=== PATIENT | male | born 1985 | race American Indian/Alaskan Native ===

== ENCOUNTER 2017-12-16 17:32 | Emergency (ER) | payer OTHER ==
[2017-12-16 17:44] VITALS: BP 174/91
--- NOTE | 2017-12-16 18:48 | XRay Report ---
FINAL REPORT EXAM: XR HAND 3+V RT HISTORY: pain/swelling r/t injury TECHNIQUE: Frontal, lateral, oblique views right hand Comparison: None FINDINGS: There is acute angulated and displaced fracture of the distal metadiaphysis of the 5th metacarpal with associated soft tissue swelling. There is the appearance of sequela of previous fracture of the ulna styloid versus accessory ossicle. IMPRESSION: 1. Acute angulated and displaced fracture distal metadiaphysis of the 5th metacarpal with associated soft tissue swelling.
[2017-12-16] MEDS ORDERED: MOTRIN PO ONE (19:26)
--- NOTE | 2017-12-16 19:26 | Emergency Department Report ---
Upper Extremity - [facility] Chief Complaint: Extremity Injury, Upper Stated Complaint: RIGHT HAND PAIN Time Seen by Provider: 12/16/17 19:04 Upper Extremity: Right Hand (swollen and painful after accidentally hit in the stepson's knee . Patient said he was joking around at the time with his stepson but he is having pain and swelling to right hand.) Occurred When: Today Mechanism: Hit with Object Severity: severe Symptoms: Yes Pain with Movement (8/10. Pain is better with rest. Pain is achy and throbbing), Yes Limited Range of Movement (painful range of motion to right hand), Yes Swelling (right hand), No Deformity, No Numbness, No Weakness, No Bruising/Ecchymosis, No Laceration or Abrasion Other History: This is a 32-year-old male here presented to the emergency room report that he was joking around with his stepson and he accidentally injured his right hand when his hand connected to stepson knee. He reports that his pain is 8 out of 10 achy and throbbing to right hand. Denies any radiation of pain. Denies any restriction in movement to his fingers or wrists. No medication taken per patient. Denies any redness or fever or chills. Pain is better with rest and worse with movement ED Review of Systems ROS: Stated complaint: RIGHT HAND PAIN Other details as noted in HPI Constitutional: denies: chills, fever Eyes: denies: eye discharge ENT: denies: throat pain Respiratory: denies: cough, shortness of breath, SOB with exertion, SOB at rest , stridor, wheezing Cardiovascular: denies: chest pain, palpitations Gastrointestinal: denies: abdominal pain, nausea, diarrhea, constipation Genitourinary: denies: urgency, dysuria Musculoskeletal: denies: back pain, joint swelling, arthralgia Skin: denies: rash, lesions Neurological: denies: headache, weakness, paresthesias Psychiatric: denies: anxiety, depression Hematological/Lymphatic: denies: easy bleeding, easy bruising ED Past Medical Hx - Past Medical History Previous Medical History?: No - Surgical History Past Surgical History?: No - Family History Family history: no significant - Social History Smoking Status: Current Every Day Smoker Substance Use Type: Alcohol - Medications Home Medications: Home Medications Medication Instructions Recorded Confirmed Last Taken Type HYDROcodone/ACETAMINOPHEN [[place] 1 each PO Q6H PRN #12 tablet 12/16/17 Unknown Rx 7.5-325 Tablet] Ibuprofen [Motrin] 600 mg PO Q8H PRN #15 tablet 12/16/17 Unknown Rx Upper Extremity Exam - Exam General: Vital signs noted. No distress. Alert and acting appropriately. This is a 32-year-old male well-nourished well-developed in no distress Head and Torso: No HEENT Abnormality, No Neck Tenderness, No Chest/Lungs Abnormality, No Abdominal Tenderness, No Back Tenderness Shoulder Exam: Yes Normal Range of Motion in Shoulder, No Shoulder Tenderness, No Clavicle Tenderness, No Shoulder Deformity, No AC Joint Tenderness Arm Exam: No Arm/Humerus Tenderness, No Arm Deformity Elbow: Yes Normal Range of Motion in Elbow, No Elbow Tenderness, No Elbow Deformity Forearm: No Forearm Tenderness, No Forearm Deformity, No Pain with Pronation, No Pain with Supination Wrist: Yes Normal ROM in Wrist (normal movement), No Wrist Tenderness, No Wrist Deformity, No Snuffbox Tenderness, No Pain with Axial Thumb Compression Hand: Yes Hand Tenderness (tenderness to the fifth metacarpal bone with swelling ), Yes Normal ROM in Digit(s) (pain with range of motion), No Hand Deformity, No Digit Tenderness, No Digit(s) Deformity, No Tendon Dysfunction CMS Exam: Yes Normal Distal Pulses, Yes Normal Capillary Refill, Yes Normal Distal Sensation, No Broken Skin Hand L/R Back: 1 - Pain, swelling and tenderness at metacarbal bone area, right hand. ED Course Vital Signs 12/16/17 17:42 Temperature 98.4 F Pulse Rate 80 Respiratory 18 Rate Blood Pressure 174/91 O2 Sat by Pulse 99 Oximetry - Reevaluation(s) Reevaluation #1: 12/16/17 21:31 Patient given motrin 800 mg po with releif of pain. Right boxer fracture with splint placement. Patient with good color, sensation, temperature and movement fingers of right hand. - Orthopedic Splinting/Casting Injury #1 Side: right Upper Extremity Injury Location: hand Upper Extremity Immobilizer: sling/shoulder immobilize, ulnar gutter Additional Comments: Post-splint and neurovascular check intact. ED Medical Decision Making - Radiology Data Radiology results: report reviewed X-ray 3 view of right hand dictated by radiologist and report reviewed by myself. Please see report below. Patient: ANKIT GARCIA MR#: [id number] : 1985 Acct:[id number] Age/Sex: 32 / M ADM Date: 12/16/17 Loc: ED Attending Dr: Ordering Physician: TRE NARAYAN MD Date of Service: 12/16/17 Procedure(s): XR hand 3+V RT Accession Number(s): [id number] cc: ED MD SYLVAIN Fluoro Time In Minutes: FINAL REPORT EXAM: XR HAND 3+V RT HISTORY: pain/swelling r/t injury TECHNIQUE: Frontal, lateral, oblique views right hand Comparison: None FINDINGS: There is acute angulated and displaced fracture of the distal metadiaphysis of the 5th metacarpal with associated soft tissue swelling. There is the appearance of sequela of previous fracture of the ulna styloid versus accessory ossicle. IMPRESSION: 1. Acute angulated and displaced fracture distal metadiaphysis of the 5th metacarpal with associated soft tissue swelling. Transcribed By: ED Dictated By: WINSTON JIMÉNEZ MD Electronically Authenticated By: WINSTON JIMÉNEZ MD Signed Date/Time: 12/16/171840 DD/ 40 TD/TT: 12/16/171840 - Medical Decision Making This is a 32-year-old male reports that he injured his right hand while joking around with his stepson. He reports pain and swelling. He is here to be evaluated Patient was seen and examined by myself. He has swelling and tenderness to fifth metacarpal bone area of right hand. Patient has no restriction in movement to his right hand and he has 2+ and bounding radial and ulnar pulses to both upper extremity. He has no injury to fingers or to nail bed. And no laceration or abrasion to his hands. Bilateral handgrips are strong and equal in the has no neurovascular compromise. X-ray 3 view of right hand dictated by radiologist and report reviewed by myself. And shows Acute angulated and displaced fracture distal metadiaphysis of the 5th metacarpal with associated soft tissue swelling. I discussed x-ray result with patient and he voiced understanding. I also discussed the importance of him following up with orthopedic doctor for further evaluation and treatment. I told them that he needs to keep the splint on until further direction from orthopedic doctor. He voiced understanding. Assessment/plan Acute distal fifth metacarpal displaced fracture with soft tissue swelling secondary to injury-patient had boxer OCL splint placed to left hand. Patient with good color, movement, sensation and temperature to fingers of left hand after splint placed. He was given Motrin 800 mg by mouth in emergency room for pain which relieved this pain. Arthralgia right hand-better with Motrin Patient educated on medication, fracture, splint care, need to follow-up with orthopedic doctor, checking for compromising circulation with splint on. He voiced understanding. Patient discharged home in stable condition. Vital signs are stable he is afebrile and his pain has diminished since splint is placed and Motrin. Patient discharged home with prescription for [place] and Motrin and he knows to follow up with orthopedic doctor in 2-3 days. - Differential Diagnosis fracture, contusion, sprain, strain, musculoskeletal pain Critical care attestation.: If time is entered above; I have spent that time in minutes in the direct care of this critically ill patient, excluding procedure time. ED Disposition Clinical Impression: Arthralgia of right hand Fracture of metacarpal, closed Qualifiers: Encounter type: initial encounter Metacarpal bone: fifth Metacarpal location: unspecified portion of metacarpal Fracture alignment: displaced Laterality: right Qualified Code(s): S62.306A - Unspecified fracture of fifth metacarpal bone, right hand, initial encounter for closed fracture Disposition: DC-01 TO HOME OR SELFCARE Is pt being admited?: No Does the pt Need Aspirin: No Condition: Stable Instructions: Hand Fracture (ED), Arthralgia (ED), Splint Care (ED), RICE Therapy (ED) Additional Instructions: Please follow up with orthopedic doctor as instructed and to 3 days Please follow discharge instruction on Rice therapy and splint care Take [place] for severe pain and please do not drive or operate heavy machinery while taking this medication as a cause drowsiness Take Motrin 600 mg for mild to moderate pain but please take this medication with food on his stomach is aching cause irritation T is somewhat inclined in Prescriptions: HYDROcodone/ACETAMINOPHEN [[place] 7.5-325 Tablet] 1 each PO Q6H PRN #12 tablet PRN Reason: severe pain Ibuprofen [Motrin] 600 mg PO Q8H PRN #15 tablet PRN Reason: mild to moderate pain Referrals: PRIMARY CARE, [Primary Care Provider] - 2-3 Days MELISSA OCONNOR MD [Staff Physician] - 2-3 Days Forms: Work/School Release Form(ED)
== END 2017-12-16 22:05 | disposition home or self-care (01) ==
LOC: ED 17:32
DX: S62.396A Other fracture of fifth metacarpal bone, right hand, initial encounter for closed fracture (principal); F17.200 Nicotine dependence, unspecified, uncomplicated; W22.8XXA Striking against or struck by other objects, initial encounter; Y93.89 Activity, other specified; Y92.89 Other specified places as the place of occurrence of the external cause; Y99.8 Other external cause status
CPT/HCPCS: 99283

== ENCOUNTER 2018-06-19 09:12 | Emergency (ER) | payer OTHER ==
[2018-06-19 09:18] VITALS: BP 141/74
[2018-06-19] MEDS ORDERED: TESSALON PERLES PO ONE (09:46)
--- NOTE | 2018-06-19 10:20 | XRay Report ---
ROUTINE CHEST, TWO VIEWS: Cough PA and lateral views demonstrate the heart and mediastinal contour to be of normal size and shape. The lungs are clear and fully expanded and the soft tissues and bony structures are normal. IMPRESSION: Normal study.
--- NOTE | 2018-06-19 10:21 | Emergency Department Report ---
- General Chief Complaint: Sore Throat Stated Complaint: COUGH/SORETHROAT Time Seen by Provider: 06/19/18 09:42 Source: patient Mode of arrival: Ambulatory Limitations: No Limitations - History of Present Illness Initial Comments: This is a 33-year-old male nontoxic, well nourished in appearance, no acute signs of distress presents to the ED with c/o of productive cough, sore throat, rhinorrhea, nasal congestion x1 week. Patient describes productive cough as yellow mucus production. Patient denies any sick contact. Patient denies any recent travels, long car, recent hospital stays. Patient denies any calf pain or calf tenderness. Patient denies any chest pain, short of breath, fever, chills, nausea, vomiting, hemoptysis, numbness, tingling, headache or stiff neck. Patient denies any allergies to significant past medical history. MD Complaint: cough, sore throat, rhinorrhea, nasal congestion -: week(s) (1) Severity: mild Severity scale (0 -10): 8 Quality: aching Consistency: constant Improves With: nothing Worsens With: nothing Associated Symptoms: rhinorrhea, nasal congestion, sore throat, cough. denies: fever, chills, myalgias, diaphoresis, headache, stiff neck, chest pain, shortness of breath, abdominal pain, nausea, vomiting, diarrhea, dysuria, rash, confusion, right sweats, weight loss, epistaxis, hoarseness, ear pain Treatments Prior to Arrival: none - Related Data Previous Rx's Medication Instructions Recorded Last Taken Type HYDROcodone/ACETAMINOPHEN [[place] 1 each PO Q6H PRN #12 tablet 12/16/17 Unknown Rx 7.5-325 Tablet] Ibuprofen [Motrin] 600 mg PO Q8H PRN #15 tablet 12/16/17 Unknown Rx Amoxicillin [Amoxicillin TAB] 875 mg PO BID #20 tablet 06/19/18 Unknown Rx Benzonatate [Tessalon Perle] 100 mg PO Q8H PRN #20 capsule 06/19/18 Unknown Rx Ibuprofen [Motrin] 600 mg PO Q8H PRN #20 tablet 06/19/18 Unknown Rx Nystas/Diphen/Xyl Visc/Mylanta 15 ml MM Q6H PRN 5 Days ml 06/19/18 Unknown Rx [Magic Mouthwash] Allergies Allergy/AdvReac Type Severity Reaction Status Date / Time No Known Allergies Allergy Verified 06/19/18 09:16 ED Review of Systems ROS: Stated complaint: COUGH/SORETHROAT Other details as noted in HPI Constitutional: denies: chills, fever Eyes: denies: eye pain, eye discharge, vision change ENT: throat pain, congestion. denies: ear pain Respiratory: cough. denies: shortness of breath, wheezing Cardiovascular: denies: chest pain, palpitations Endocrine: no symptoms reported Gastrointestinal: denies: abdominal pain, nausea, diarrhea Genitourinary: denies: urgency, dysuria Musculoskeletal: denies: back pain, joint swelling, arthralgia Skin: denies: rash, lesions Neurological: denies: headache, weakness, paresthesias Psychiatric: denies: anxiety, depression Hematological/Lymphatic: denies: easy bleeding, easy bruising ED Past Medical Hx - Past Medical History Previous Medical History?: No - Surgical History Past Surgical History?: No - Social History Smoking Status: Current Every Day Smoker Substance Use Type: None - Medications Home Medications: Home Medications Medication Instructions Recorded Confirmed Last Taken Type HYDROcodone/ACETAMINOPHEN [[place] 1 each PO Q6H PRN #12 tablet 12/16/17 Unknown Rx 7.5-325 Tablet] Ibuprofen [Motrin] 600 mg PO Q8H PRN #15 tablet 12/16/17 Unknown Rx Amoxicillin [Amoxicillin TAB] 875 mg PO BID #20 tablet 06/19/18 Unknown Rx Benzonatate [Tessalon Perle] 100 mg PO Q8H PRN #20 capsule 06/19/18 Unknown Rx Ibuprofen [Motrin] 600 mg PO Q8H PRN #20 tablet 06/19/18 Unknown Rx Nystas/Diphen/Xyl Visc/Mylanta 15 ml MM Q6H PRN 5 Days ml 06/19/18 Unknown Rx [Magic Mouthwash] ED Physical Exam - General Limitations: No Limitations General appearance: alert, in no apparent distress - Head Head exam: Present: atraumatic, normocephalic - Eye Eye exam: Present: normal appearance - Expanded ENT Exam Expanded Ear exam: Present: normal external inspection Mouth exam: Present: normal external inspection. Absent: drooling, trismus, muffled voice Teeth exam: Present: normal inspection Throat exam: Positive: tonsillar erythema, other (uvula midline). Negative: tonsillomegaly, tonsillar exudate, R peritonsillar mass, L peritonsillar mass - Neck Neck exam: Present: normal inspection, full ROM. Absent: tenderness, meningismus, lymphadenopathy - Respiratory Respiratory exam: Present: normal lung sounds bilaterally. Absent: respiratory distress, wheezes, rales, rhonchi, stridor, chest wall tenderness, accessory muscle use, decreased breath sounds, prolonged expiratory - Cardiovascular Cardiovascular Exam: Present: regular rate, normal rhythm, normal heart sounds. Absent: bradycardia, tachycardia, irregular rhythm, systolic murmur, diastolic murmur, rubs, gallop - Extremities Exam Extremities exam: Present: normal inspection, full ROM - Back Exam Back exam: Present: normal inspection, full ROM - Neurological Exam Neurological exam: Present: alert, oriented X3 - Psychiatric Psychiatric exam: Present: normal affect, normal mood - Skin Skin exam: Present: warm, dry, intact, normal color. Absent: rash ED Course Vital Signs 06/19/18 09:16 Temperature 98.5 F Pulse Rate 84 Respiratory 18 Rate Blood Pressure 141/74 O2 Sat by Pulse 99 Oximetry - Reevaluation(s) Reevaluation #1: 06/19/18 10:20 Patient is speaking in full sentences with no signs of distress noted. ED Medical Decision Making - Medical Decision Making This is a 33-year-old male that presents with bronchitis and sinusitis. Patient is stable and was examined by me. Chest x-ray has been obtained and dictated by radiologist with normal exam. Patient is notified of x-ray results with no questions noted. Patient discharged with amoxicillin. Patient was instructed to increase hydration, rest and take Motrin for fever episodes. Patient received tesslone perrls in the ED. Vitals stable. Patient is nonfebrile and normal heart rate. Patient was instructed Follow-up with a primary care doctor in 3-5 days or if symptoms worsen and continue return to emergency room as soon as possible. At time time of discharge, the patient does not seem toxic or ill in appearance. No acute signs of distress noted. Patient agrees to discharge treatment plan of care. No further questions noted by the patient. Critical care attestation.: If time is entered above; I have spent that time in minutes in the direct care of this critically ill patient, excluding procedure time. ED Disposition Clinical Impression: Bronchitis Pharyngitis Qualifiers: Pharyngitis/tonsillitis etiology: unspecified etiology Qualified Code(s): J02.9 - Acute pharyngitis, unspecified Disposition: DC- TO HOME OR SELFCARE Is pt being admited?: No Does the pt Need Aspirin: No Condition: Stable Instructions: Acute Bronchitis (ED), Pharyngitis (ED) Additional Instructions: Follow-up with a primary care doctor in 3-5 days or if symptoms worsen and continue return to emergency room as soon as possible. Prescriptions: Amoxicillin [Amoxicillin TAB] 875 mg PO BID #20 tablet Benzonatate [Tessalon Perle] 100 mg PO Q8H PRN #20 capsule PRN Reason: Cough Ibuprofen [Motrin] 600 mg PO Q8H PRN #20 tablet PRN Reason: Pain Nystas/Diphen/Xyl Visc/Mylanta [Magic Mouthwash] 15 ml MM Q6H PRN 5 Days ml PRN Reason: Sore Throat Referrals: PRIMARY CAREMD [Referring] - 3-5 Days FARIHA ADDISON MD [Staff Physician] - 3-5 Days [facility] [Outside] - 3-5 Days [facility] [Outside] - 3-5 Days Forms: Work/School Release Form(ED)
== END 2018-06-19 10:38 | disposition home or self-care (01) ==
LOC: ED 09:12
DX: J40 Bronchitis, not specified as acute or chronic (principal); J02.9 Acute pharyngitis, unspecified; F17.200 Nicotine dependence, unspecified, uncomplicated
CPT/HCPCS: 71046; 99283

== ENCOUNTER 2018-07-06 03:02 | Emergency (ER) | payer OTHER | END 2018-07-06 03:30 | disposition left against medical advice (07) | LOC: ED 03:02 ==

== ENCOUNTER 2018-11-19 09:52 | Emergency (ER) | payer OTHER ==
--- NOTE | 2018-11-19 11:09 | Emergency Department Report ---
ED Back Pain/Injury HPI - General Chief Complaint: Back Pain/Injury Stated Complaint: BACK PAIN Time Seen by Provider: 11/19/18 10:24 Source: patient Limitations: No Limitations - History of Present Illness Initial Comments: Patient is a 33-year-old male who presents to the emergency room with complaints of left-sided back pain that began yesterday. He denies any fall, injury, bowel or bladder incontinence, or numbness or weakness. He does not report any urinary symptoms, fever, abdominal pain, nausea or vomiting. 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 He denies any past medical history, allergies medications or daily medications. - Related Data Previous Rx's Medication Instructions Recorded Last Taken Type HYDROcodone/ACETAMINOPHEN [[place] 1 each PO Q6H PRN #12 tablet 12/16/17 Unknown Rx 7.5-325 Tablet] Ibuprofen [Motrin] 600 mg PO Q8H PRN #15 tablet 12/16/17 Unknown Rx Amoxicillin [Amoxicillin TAB] 875 mg PO BID #20 tablet 06/19/18 Unknown Rx Benzonatate [Tessalon Perle] 100 mg PO Q8H PRN #20 capsule 06/19/18 Unknown Rx Ibuprofen [Motrin] 600 mg PO Q8H PRN #20 tablet 06/19/18 Unknown Rx Nystas/Diphen/Xyl Visc/Mylanta 15 ml MM Q6H PRN 5 Days ml 06/19/18 Unknown Rx [Magic Mouthwash] Cyclobenzaprine [Flexeril] 10 mg PO QHS PRN #10 tablet 11/19/18 Unknown Rx Ibuprofen [Motrin 800 MG tab] 800 mg PO Q8HR PRN #14 tablet 11/19/18 Unknown Rx Allergies Allergy/AdvReac Type Severity Reaction Status Date / Time No Known Allergies Allergy Verified 06/19/18 09:16 ED Review of Systems ROS: Stated complaint: BACK PAIN Other details as noted in HPI Comment: All other systems reviewed and negative ED Past Medical Hx - Past Medical History Previous Medical History?: No Hx Asthma: Yes - Surgical History Past Surgical History?: No - Social History Smoking Status: Current Every Day Smoker Substance Use Type: Alcohol - Medications Home Medications: Home Medications Medication Instructions Recorded Confirmed Last Taken Type HYDROcodone/ACETAMINOPHEN [[place] 1 each PO Q6H PRN #12 tablet 07/29/18 Unknown Rx 7.5-325 Tablet] Ibuprofen [Motrin] 600 mg PO Q8H PRN #15 tablet 12/16/17 Unknown Rx Amoxicillin [Amoxicillin TAB] 875 mg PO BID #20 tablet 06/19/18 Unknown Rx Benzonatate [Tessalon Perle] 100 mg PO Q8H PRN #20 capsule 06/19/18 Unknown Rx Ibuprofen [Motrin] 600 mg PO Q8H PRN #20 tablet 06/19/18 Unknown Rx Nystas/Diphen/Xyl Visc/Mylanta 15 ml MM Q6H PRN 5 Days ml 06/19/18 Unknown Rx [Magic Mouthwash] Cyclobenzaprine [Flexeril] 10 mg PO QHS PRN #10 tablet 11/19/18 Unknown Rx Ibuprofen [Motrin 800 MG tab] 800 mg PO Q8HR PRN #14 tablet 11/19/18 Unknown Rx ED Physical Exam - General Limitations: No Limitations General appearance: alert, in no apparent distress - Head Head exam: Present: atraumatic, normocephalic - Eye Eye exam: Present: normal appearance, PERRL - ENT ENT exam: Present: mucous membranes moist - Neck Neck exam: Present: normal inspection, full ROM. Absent: tenderness - Respiratory Respiratory exam: Present: normal lung sounds bilaterally. Absent: respiratory distress, wheezes, rales, rhonchi, stridor, chest wall tenderness, accessory muscle use, decreased breath sounds, prolonged expiratory - Cardiovascular Cardiovascular Exam: Present: regular rate, normal rhythm, normal heart sounds. Absent: systolic murmur, diastolic murmur, rubs, gallop - Back Exam Back exam: Present: normal inspection, full ROM, paraspinal tenderness (left T- spine paraspinal muscular TTP, no midline C-spine, T-spine, or L-spine tenderness to palpation, no step offs, no deformities ). 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 Absent: motor sensory deficit - Psychiatric Psychiatric exam: Present: normal affect, normal mood - Skin Skin exam: Present: warm, dry, intact ED Course Vital Signs 11/19/18 11/19/18 10:13 11:23 Temperature 98.2 F Pulse Rate 78 74 Respiratory 16 16 Rate Blood Pressure 161/76 Blood Pressure 154/75 [Right] O2 Sat by Pulse 99 100 Oximetry ED Medical Decision Making - Medical Decision Making Patient is a 33-year-old male who presents to the emergency room with complaints of left-sided back pain that began yesterday. He denies any fall, injury, bowel or bladder incontinence, or numbness or weakness. He does not report any urinary symptoms, fever, abdominal pain, nausea or vomiting. 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 He denies any past medical history, allergies medications or daily medications. on exam: left T-spine paraspinal muscular TTP, no midline C-spine, T-spine, or L-spine tenderness to palpation, no step offs, no deformities, no focal neuro deficit. pt given anti-inflammatory and muscle relaxer for low back strain. advised to please take medication as prescribed. Do not drive or operate machinery while taking muscle relaxer. Use ice, rest, heat, epsom salt bath. Follow up with a primary care doctor in the next 2-3 days. Return to the emergency room for any new or worsening symptoms. - Differential Diagnosis DDD, DJD, muscle strain Critical care attestation.: If time is entered above; I have spent that time in minutes in the direct care of this critically ill patient, excluding procedure time. ED Disposition Clinical Impression: Back pain Qualifiers: Back pain location: thoracic back pain Chronicity: acute Back pain laterality: left Qualified Code(s): M54.6 - Pain in thoracic spine Disposition: DC-01 TO HOME OR SELFCARE Is pt being admited?: No Does the pt Need Aspirin: No Condition: Stable Instructions: Muscle Strain (ED) Additional Instructions: Please take medication as prescribed. Do not drive or operate machinery while taking muscle relaxer. Use ice, rest, heat, epsom salt bath. Follow up with a primary care doctor in the next 2-3 days. Return to the emergency room for any new or worsening symptoms. Prescriptions: Cyclobenzaprine [Flexeril] 10 mg PO QHS PRN #10 tablet PRN Reason: Muscle Spasm Ibuprofen [Motrin 800 MG tab] 800 mg PO Q8HR PRN #14 tablet PRN Reason: Pain, Moderate (4-6) Referrals: [facility] [Provider Group] - 2-[address] [facility] [Outside] - 2-3 Days [facility] [Outside] - 2-3 Days Time of Disposition: 11:06 Print Language: HEBREW
[2018-11-19 11:24] VITALS: BP 154/75
== END 2018-11-19 11:23 | disposition home or self-care (01) ==
LOC: ED 09:52
DX: M54.9 Dorsalgia, unspecified (principal); F17.200 Nicotine dependence, unspecified, uncomplicated; Z79.1 Long term (current) use of non-steroidal anti-inflammatories (NSAID); Z79.899 Other long term (current) drug therapy
CPT/HCPCS: 99282

== ENCOUNTER 2018-12-01 20:29 | Emergency (ER) | payer OTHER | END 2018-12-01 21:05 | disposition left against medical advice (07) | LOC: ED 20:29 | DX: M25.531 Pain in right wrist (principal); Z53.21 Procedure and treatment not carried out due to patient leaving prior to being seen by health care provider ==

== ENCOUNTER 2018-12-02 09:10 | Emergency (ER) | payer OTHER ==
[2018-12-02 09:19] VITALS: BP 126/68
--- NOTE | 2018-12-02 09:33 | Emergency Department Report ---
ED Back Pain/Injury HPI - General Chief Complaint: Extremity Injury, Upper Stated Complaint: R WRIST PAIN/SWOLLEN Source: patient Limitations: No Limitations - History of Present Illness Initial Comments: Patient is a pleasant 33-year-old male who comes to the ER complaining of right wrist pain and swelling. He states that he hurt it at work last week. He has mild swelling on exam. He is neurovascularly intact. - Related Data Previous Rx's Medication Instructions Recorded Last Taken Type HYDROcodone/ACETAMINOPHEN [[place] 1 each PO Q6H PRN #12 tablet 12/16/17 Unknown Rx 7.5-325 Tablet] Ibuprofen [Motrin] 600 mg PO Q8H PRN #15 tablet 12/16/17 Unknown Rx Amoxicillin [Amoxicillin TAB] 875 mg PO BID #20 tablet 06/19/18 Unknown Rx Benzonatate [Tessalon Perle] 100 mg PO Q8H PRN #20 capsule 06/19/18 Unknown Rx Ibuprofen [Motrin] 600 mg PO Q8H PRN #20 tablet 06/19/18 Unknown Rx Nystas/Diphen/Xyl Visc/Mylanta 15 ml MM Q6H PRN 5 Days ml 06/19/18 Unknown Rx [Magic Mouthwash] Cyclobenzaprine [Flexeril] 10 mg PO QHS PRN #10 tablet 11/19/18 Unknown Rx Ibuprofen [Motrin 800 MG tab] 800 mg PO Q8HR PRN #14 tablet 11/19/18 Unknown Rx Allergies Allergy/AdvReac Type Severity Reaction Status Date / Time No Known Allergies Allergy Verified 06/19/18 09:16 ED Review of Systems ROS: Stated complaint: R WRIST PAIN/SWOLLEN Other details as noted in HPI Comment: All other systems reviewed and negative ED Past Medical Hx - Past Medical History Medical history: no medical history Family history: no significant family history ED Back Pain Physical Exam - Exam General: Vital signs noted. No distress. Alert and acting appropriately. WDWN patient in NAD VS per RN flow sheet Alert and oriented to person, place and time. S1-S2. No S3 or S4. No systolic or diastolic murmur. No JVD. No pitting edema. Lungs clear to auscultation bilaterally anteriorly and posteriorly. Abdomen soft nontender bowel sounds x4 Moves all extremities well x r wrist limited by pain rapid cap refill. radial and ulnar pulses intact. no snuff box tenderness. full rom distal fingers. forearm WNL. Mood and affect appropriate. Back/Abdomen: No Abdominal Tenderness, No Perithoracic Tenderness, No Perilumbar Tenderness, No Sacroiliac Tenderness, No Flank Tenderness, No Straight Leg Raise Pain ED Course Vital Signs 12/02/18 09:16 Temperature 98 F Pulse Rate 91 H Respiratory 19 Rate Blood Pressure 126/68 [Left] O2 Sat by Pulse 100 Oximetry Ed Back Pain Tests - Tests Tests: Abnormal X Rays ED Medical Decision Making - Radiology Data Radiology results: report reviewed, image reviewed - Medical Decision Making fx on xray noted splint to arm neurovasc intact dc home with dc plan of are including ortho follow up Vital Signs 12/02/18 09:16 Temperature 98 F Pulse Rate 91 H Respiratory 19 Rate Blood Pressure 126/68 [Left] O2 Sat by Pulse 100 Oximetry Critical care attestation.: If time is entered above; I have spent that time in minutes in the direct care of this critically ill patient, excluding procedure time. ED Disposition Clinical Impression: Fracture of ulnar styloid Disposition: DC-01 TO HOME OR SELFCARE Is pt being admited?: No Does the pt Need Aspirin: No Condition: Stable Instructions: Wrist Fracture in Adults (ED) Additional Instructions: DIET TOLERATED MEDS ORDERED TODAY IN ER FOLLOW INSTRUCTIONS ON THE BOTTLE FOLLOW UP PCP WITHIN 48 HOURS TO ENSURE YOU ARE GETTING BETTER ACTIVITY TOLERATED MOTRIN OR TYLENOL FOR PAIN OR FEVER RETURN TO THE ER FOR WORSENING SYMPTOMS NOT RELIEVED BY YOUR MEDICATIONS. follow up with Dr Perez next week- referral below splint to prevent further injury ice/rest/elevate no work with right hand until cleared by ortho Referrals: MELISSA PEREZ MD [Staff Physician] - 3-5 Days Time of Disposition: 10:04
--- NOTE | 2018-12-02 09:57 | XRay Report ---
RIGHT WRIST, 4 VIEWS INDICATION: Right wrist pain for 5 days. COMPARISON: None. IMPRESSION: No acute osseous or soft tissue abnormality. 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 No evidence for degenerative joint disease or ligamentous injury. Signer Name: Malik Barber Jr, MD Signed: 12/02/2018 9:52 AM Workstation Name: [id number]
[2018-12-02] MEDS ORDERED: IBUPROFEN PO ONE (09:58)
== END 2018-12-02 10:42 | disposition home or self-care (01) ==
LOC: ED 09:10
DX: S52.611A Displaced fracture of right ulna styloid process, initial encounter for closed fracture (principal); Z79.4 Long term (current) use of insulin; Z79.899 Other long term (current) drug therapy; W22.8XXA Striking against or struck by other objects, initial encounter; Y93.89 Activity, other specified; Y92.69 Other specified industrial and construction area as the place of occurrence of the external cause; Y99.8 Other external cause status
CPT/HCPCS: 99283

== ENCOUNTER 2019-02-02 09:08 | Emergency (ER) | payer OTHER ==
[2019-02-02 09:16] VITALS: BP 153/71
--- NOTE | 2019-02-02 10:25 | Emergency Department Report ---
Upper Extremity - HPI Chief Complaint: Extremity Injury, Upper Stated Complaint: R WRIST PAIN Time Seen by Provider: 02/02/19 09:58 Upper Extremity: Right Wrist, Right Hand Occurred When: >5 Days Mechanism: Twist Severity: mild Symptoms: Yes Pain with Movement, Yes Swelling, No Deformity, No Limited Range of Movement, No Numbness, No Weakness, No Bruising/Ecchymosis, No Laceration or Abrasion Other History: Mr. Phelps is a 33-year-old male who presents with 2 months of right wrist pain. He twisted his wrist while at work. He was diagnosed with a wrist factor. Pain is still persistent. Has swelling. He wore the splint for approximatelyly 2 weeks. Mild pain. Worse with movement. Pain is located at the ulnar aspect of the right wrist radiating to the ulnar region of the right hand. Mr. Phelps is right-handed. 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 According to electronic medical record: Wrist radiographs revealed chronic unified styloid fracture of the ulna. 2018: Mr. Phelps was treated for fifth metacarpal fracture, in 2018 the previous fracture of the ulnar styloid was seen ED Review of Systems ROS: Stated complaint: R WRIST PAIN Other details as noted in HPI Constitutional: denies: fever, malaise Musculoskeletal: joint swelling, arthralgia Skin: denies: rash, lesions Neurological: denies: numbness, paresthesias ED Past Medical Hx - Past Medical History Previous Medical History?: Yes Hx Asthma: Yes Additional medical history: Right wrist fx. pain - Surgical History Past Surgical History?: No - Social History Smoking Status: Current Every Day Smoker Substance Use Type: Alcohol, Marijuana - Medications Home Medications: Home Medications Medication Instructions Recorded Confirmed Last Taken Type HYDROcodone/ACETAMINOPHEN [[place] 1 each PO Q6H PRN #12 tablet 12/16/17 Unknown Rx 7.5-325 Tablet] Ibuprofen [Motrin] 600 mg PO Q8H PRN #15 tablet 12/16/17 Unknown Rx Amoxicillin [Amoxicillin TAB] 875 mg PO BID #20 tablet 06/19/18 Unknown Rx Benzonatate [Tessalon Perle] 100 mg PO Q8H PRN #20 capsule 06/19/18 Unknown Rx Ibuprofen [Motrin] 600 mg PO Q8H PRN #20 tablet 06/19/18 Unknown Rx Nystas/Diphen/Xyl Visc/Mylanta 15 ml MM Q6H PRN 5 Days ml 06/19/18 Unknown Rx [Magic Mouthwash] Cyclobenzaprine [Flexeril] 10 mg PO QHS PRN #10 tablet 11/19/18 Unknown Rx Ibuprofen [Motrin 800 MG tab] 800 mg PO Q8HR PRN #14 tablet 11/19/18 Unknown Rx Ibuprofen [Motrin 800 MG tab] 800 mg PO TID 5 Days #15 tablet 02/02/19 Unknown Rx Upper Extremity Exam - Exam General: Vital signs noted. No distress. Alert and acting appropriately. Elbow: Yes Normal Range of Motion in Elbow, No Elbow Tenderness, No Elbow Deformity Forearm: No Forearm Tenderness, No Forearm Deformity, No Pain with Pronation, No Pain with Supination Wrist: Yes Normal ROM in Wrist, No Wrist Tenderness, No Wrist Deformity, No Snuffbox Tenderness, No Pain with Axial Thumb Compression Hand: Yes Normal ROM in Digit(s), No Hand Tenderness, No Hand Deformity, No Digit Tenderness, No Digit(s) Deformity, No Tendon Dysfunction CMS Exam: Yes Normal Distal Pulses, Yes Normal Capillary Refill, Yes Normal Di stal Sensation, No Broken Skin ED Course Vital Signs 02/02/19 09:14 Temperature 98.1 F Pulse Rate 76 Respiratory 18 Rate Blood Pressure 153/71 O2 Sat by Pulse 99 Oximetry ED Medical Decision Making - Radiology Data Radiology results: report reviewed Right wrist radiographs: No acute findings, no changes from previous - Medical Decision Making Right wrist and hand pain: Mr. Phelps has had 2 injuries in this right upper extremity within the past year including metacarpal fracture in 2018, and twisting injury 2 months ago. I strongly recommended evaluation by orthopedic surgeon in anticipation of arthritislike process as well as possible ligamentous injury. Prescribed ibuprofen. Critical care attestation.: If time is entered above; I have spent that time in minutes in the direct care of this critically ill patient, excluding procedure time. ED Disposition Clinical Impression: Right wrist pain, Right hand pain, History of fracture Disposition: TO HOME OR SELFCARE Is pt being admited?: No Does the pt Need Aspirin: No Condition: Stable Additional Instructions: Please see the orthopedic surgeon as discussed. Prescriptions: Ibuprofen [Motrin 800 MG tab] 800 mg PO TID 5 Days #15 tablet Referrals: MELISSA OCONNOR MD [Staff Physician] - 3-5 Days Forms: Work/School Release Form(ED)
--- NOTE | 2019-02-02 10:46 | XRay Report ---
RIGHT WRIST 3 VIEWS INDICATION: wrist pain hx of fracture. COMPARISON: 12/02/2018. FINDINGS: There is no significant change since the prior exam. Healed little finger metacarpal fracture is agai n noted. Ununited apophysis versus ununited ulnar styloid fracture again noted. Carpal alignment is n ormal. IMPRESSION: 1. No significant change. Signer Name: Manny Taveras MD Signed: 02/02/2019 10:42 AM Workstation Name: [email or web address]
== END 2019-02-02 11:03 | disposition home or self-care (01) ==
LOC: ED 09:08
DX: M25.531 Pain in right wrist (principal); J45.909 Unspecified asthma, uncomplicated; F17.200 Nicotine dependence, unspecified, uncomplicated; F12.90 Cannabis use, unspecified, uncomplicated; Z79.899 Other long term (current) drug therapy
CPT/HCPCS: 99283

== ENCOUNTER 2019-07-08 07:36 | Emergency (ER) | payer OTHER ==
[2019-07-08 07:46] VITALS: BP 150/91
[2019-07-08 08:55] LABS: Mucus,Urine FEW /HPF
[2019-07-08 09:36] LABS: Bilirubin,Urine Negative (Negative); Blood,Urine Negative (Negative); Color,Urine Straw (Yellow)
[2019-07-08 09:37] LABS: Urobilinogen,Urine < 2.0 mg/dL (<2.0)
--- NOTE | 2019-07-08 10:10 | Emergency Department Report ---
Chief Complaint: Urogenital-Male Stated Complaint: ITCHING/DISCHARGE Time Seen by Provider: 07/08/19 09:32 - HPI History of Present Illness: 34-year-old male with no significant past medical history presents to the ER today complaining of white penile discharge and penile itching. He denies any apparent rash, he denies any dysuria, denies any hematuria, denies any testicular pain or swelling. He denies any known STD exposure. Denies any new sexual contact. - ROS Review of Systems: +penile discharge and penile itching. negative abd pain, negative n/v/d, negative dysuria or hematuria, negative testicular pain or swelling; every other system reviewed and negative. - Exam Vital Signs: Vital Signs 07/08/19 07:45 Temperature 98.3 F Pulse Rate 88 Respiratory 16 Rate Blood Pressure 150/91 O2 Sat by Pulse 99 Oximetry Physical Exam: Patient is well appearing, not toxic, no acute distress Cardiac-- RRR, no murmurs rubs or gallops Respiratory -- CTA Abd -- Soft non tender Genital -- exam deferred neuro -- alert, oriented x 3, neurologically intact Psych - normal mood, normal affect, no SI, no HI MSE screening note: Focused history and physical exam performed. Patient symptoms likely related to STI. He does not have a medical emergency at this time. Recommend that patient f/u with local PCP for STI testing and treatment. Patient stable at time of d/c. ED Disposition for MSE Clinical Impression: Penile discharge Disposition: Z MED SCREENING EXAM-LEFT Is pt being admited?: No Does the pt Need Aspirin: No Condition: Stable Additional Instructions: Follow up with PCP for STD testing and treatment. Referrals: TARUN PENG MD [Staff Physician] - 3-5 Days Time of Disposition: 09:56
== END 2019-07-08 10:20 | disposition left against medical advice (07) ==
LOC: ED 07:36
DX: R36.9 Urethral discharge, unspecified (principal)
CPT/HCPCS: 81001; 87086; 99283

== ENCOUNTER 2019-10-02 10:23 | Emergency (ER) | payer OTHER ==
[2019-10-02 10:47] VITALS: BP 137/77
--- NOTE | 2019-10-02 10:47 | Event Note ---
ED Screening Note ED Screening Note: This initial assessment/diagnostic orders/clinical plan/treatment(s) is/are subject to change based on patients health status, clinical progression and re- assessment by fellow clinical providers in the ED. Further treatment and workup at subsequent clinical providers discretion. Patient/guardian urged not to elope from the ED as their condition may be serious if not clinically assessed and managed. Initial orders include: hx bronchitis flu like symptoms VSS xray ro pna/asthma ae
[2019-10-02] MEDS ORDERED: predniSONE 20 MG TAB PO ONE (10:54)
--- NOTE | 2019-10-02 10:54 | Emergency Department Report ---
ED Rash HPI - HPI Chief Complaint: Skin/Abscess/Foreign Body Stated Complaint: LFT SIDE PAIN Time Seen by Provider: 10/02/19 10:52 Duration: 3 Days Location: Other Suspected Cause: Other Rash Symptoms: No Itching, No Facial Swelling, No Tongue/Oral Swelling, No Breathing Difficulties, No Choking Sensation, No Wheezing/Dyspnea, No Peeling, No Blistering, No Fever, No Lightheaded, No Malaise, No Myalgias Severity: mild Other History: Patient is a pleasant 34-year-old -[place] male who comes to the ER today complaining of left side pain. The pain is very localized over the thoracic nerve where we would most commonly see shingles. He does state that the pain is worse with movement. Patient also states that he sees bumps from time to time. However the pain he is describing is more superficial. I am concerned that he is in the early stages of perhaps developing shingles. He did have chickenpox as a child. There are no lesions appreciable on the patient at the current time. He does work in [employer] and he thinks that perhaps that this is muscle. We had a long discussion about this and he has been instructed to monitor for purulent painful lesions that might come up. ED Review of Systems ROS: Stated complaint: LFT SIDE PAIN Other details as noted in HPI Comment: All other systems reviewed and negative ED Past Medical Hx - Past Medical History Previous Medical History?: Yes Hx Asthma: Yes Additional medical history: Right wrist fx. pain - Surgical History Past Surgical History?: No - Family History Family history: no significant - Social History Smoking Status: Never Smoker Substance Use Type: Alcohol - Medications Home Medications: Home Medications Medication Instructions Recorded Confirmed Last Taken Type HYDROcodone/ACETAMINOPHEN [[place] 1 each PO Q6H PRN #12 tablet 12/16/17 Unknown Rx 7.5-325 Tablet] Ibuprofen [Motrin] 600 mg PO Q8H PRN #15 tablet 12/16/17 Unknown Rx Amoxicillin [Amoxicillin TAB] 875 mg PO BID #20 tablet 06/19/18 Unknown Rx Benzonatate [Tessalon Perle] 100 mg PO Q8H PRN #20 capsule 06/19/18 Unknown Rx Ibuprofen [Motrin] 600 mg PO Q8H PRN #20 tablet 06/19/18 Unknown Rx Nystas/Diphen/Xyl Visc/Mylanta 15 ml MM Q6H PRN 5 Days ml 06/19/18 Unknown Rx [Magic Mouthwash] Cyclobenzaprine [Flexeril] 10 mg PO QHS PRN #10 tablet 11/19/18 Unknown Rx Ibuprofen [Motrin 800 MG tab] 800 mg PO Q8HR PRN #14 tablet 11/19/18 Unknown Rx Ibuprofen [Motrin 800 MG tab] 800 mg PO TID 5 Days #15 tablet 02/02/19 Unknown Rx predniSONE [Deltasone] 20 mg PO DAILY #5 tablet 10/02/19 Unknown Rx Rash Exam - Exam General: Vital signs noted. No distress. Alert and acting appropriately. HEENT: No Periorbital Edema, No Conjuctival Injection, No Chemosis, No Perioral Edema, No Tongue Edema, No Uvular Edema, No Compromised Airway, No Drooling Lungs: Yes Good Air Exchange (Normal Breath Sounds), No Wheezes, No Ronchi, No Stridor, No Cough, No Labored Respirations, No Retractions, No Use of Accessory Muscles, No Other Abnormal Lung Sounds Heart: Yes Regular, No Murmur Skin: No Other Other: Positive: Abdomen Normal, Neurologic Normal, Musculoskeletal Normal ED Course Vital Signs 10/02/19 10:44 Temperature 98.7 F Pulse Rate 72 Respiratory 18 Rate Blood Pressure 137/77 O2 Sat by Pulse 99 Oximetry ED Medical Decision Making - Medical Decision Making Pain the patient is having is concerning for shingles. However there is no lesion present. Patient does have a history of chickenpox as a child. Patient thinks that the pain is more musculoskeletal in nature because it is worse with movement. However, it is a very localized area on the thoracic dermatome consistent most commonly with shingles. Patient has no fever no systemic illness. He has no recent upper respiratory or other illness. He is otherwise healthy with the exception of asthma. His vital signs are normal. He has no fever he reports no recent fever or chills. I have educated patient on things to watch including purulent lesions. He is being discharged home with prednisone that will help suppress muscle pain as well as any possible rash. Vital Signs - 24 hr 10/02/19 10:44 Temperature 98.7 F Pulse Rate 72 Respiratory 18 Rate Blood Pressure 137/77 O2 Sat by Pulse 99 Oximetry Patient has been given referral to primary care. - Differential Diagnosis Muscle strain versus shingles Critical care attestation.: If time is entered above; I have spent that time in minutes in the direct care of this critically ill patient, excluding procedure time. ED Disposition Clinical Impression: Side pain Disposition: DC-01 TO HOME OR SELFCARE Is pt being admited?: No Does the pt Need Aspirin: No Condition: Stable Additional Instructions: medication as ordered today follow up with pcp referral below monitor for small pustules to come up- as we discussed see pcp pérez if they do Prescriptions: predniSONE [Deltasone] 20 mg PO DAILY #5 tablet Referrals: TARUN PENG MD [Staff Physician] - 3-5 Days Time of Disposition: 10:53
== END 2019-10-02 11:00 | disposition home or self-care (01) ==
LOC: ED 10:23
DX: M79.18 Myalgia, other site (principal); B02.9 Zoster without complications; J45.909 Unspecified asthma, uncomplicated; Z79.1 Long term (current) use of non-steroidal anti-inflammatories (NSAID); Z79.2 Long term (current) use of antibiotics; Z79.899 Other long term (current) drug therapy
CPT/HCPCS: 99282; J7512

== ENCOUNTER 2020-03-08 15:39 | Outpatient (CLI) | payer OTHER ==
[2020-03-08 16:16] LABS: Bilirubin,Urine NEG (Negative); Blood,Urine NEG (Negative); Color,Urine Yellow (Yellow); Mucus,Urine FEW /HPF; Protein,Urine <15 mg/dL mg/dL (Negative); Urobilinogen,Urine < 2.0 mg/dL (<2.0)
== END 2020-03-08 15:40 | disposition home or self-care (01) ==
LOC: LAB 15:39
PROVIDERS: ATTEND Internal Medicine
DX: N39.0 Urinary tract infection, site not specified (principal); A64 Unspecified sexually transmitted disease
CPT/HCPCS: 36415; 81001; 86689; 87529; 87591

== ENCOUNTER 2021-11-28 23:23 | Emergency (ER) | payer OTHER | END 2021-11-29 01:34 | disposition left against medical advice (07) | LOC: ED 23:23 | DX: H92.01 Otalgia, right ear (principal); Z53.21 Procedure and treatment not carried out due to patient leaving prior to being seen by health care provider ==